=== PATIENT | male | born 1970 | race Caucasian/White ===

== ENCOUNTER 2020-08-18 13:54 | Emergency (ER) | payer OTHER, SELFPAY ==
[2020-08-18 14:10] VITALS: BP 138/67; PULSE 88; RESP 16; TEMP 37.4; O2SAT 97
--- NOTE | 2020-08-18 14:26 | ED.URI ---
HPI - URI/Sore Throat General Chief Complaint: Upper Respiratory Infection Stated Complaint: sore throat Time Seen by Provider: 08/18/20 14:20 Source: patient Mode of arrival: ambulatory Limitations: no limitations History of Present Illness HPI Narrative: Cuauhtemoc Dc is a 49 yo male with DM and HTN who comes to express care with sore throat and fever who has not been to work all week patient appears to have difficulty understanding medical conditions. He has been ill since last Thursday. he is thought that he might be able to sleep it off has been on able to really swallow the last 2 days. Patient was swabbed for both strep and influenza He states he takes his medication for diabetes, HTN Related Data Home Medications Medication Instructions Recorded Confirmed glimepiride 4 mg PO DAILY 08/18/20 08/18/20 lisinopril 10 mg PO DAILY 08/18/20 08/18/20 pioglitazone 30 mg PO DAILY 08/18/20 08/18/20 Allergies Allergy/AdvReac Type Severity Reaction Status Date / Time iohexol Allergy Swelling Verified 08/18/20 14:28 [From contrast - CT, X-RAY] clindamycin AdvReac Intermediate Diarrhea Verified 08/18/20 14:28 Review of Systems Review of Systems: Narrative: CONSTITUTIONAL: has fever, chills, sweats. EYES: Denies visual changes, redness, discharge. ENT: Denies rhinorrhea, congestion, has sore throat, otalgia. Has enlarged lymph nodes particularly on left CARDIOVASCULAR: Denies chest pain, palpitations, edema. RESPIRATORY: Denies dyspnea, wheezing, cough GASTROINTESTINAL: Denies abdominal pain, nausea, vomiting, diarrhea. GENITOURINARY: Denies dysuria, hematuria, abnormal discharge SKIN: Denies rash or itching. NEUROLOGIC: Denies numbness, or focal weakness. PSYCHIATRIC: Denies anxiety or depression. [facility] Past Medical History Medical History (Updated 08/18/20 @ 14:39 by Mayra Corado CNP) Diabetes mellitus Hypertension Family History Family History Other Heart disease Social History Social History (Updated 08/18/20 @ 14:34 by Mayra Corado CNP) Smoking status: Never smoker Alcohol intake: never Comments At time of signature, I agree with nursing past medical, surgical, social and family history. There is no relevant family history pertinent to the presenting complaint. Exam Narrative: Exam Narrative: GENERAL: This is a well-nourished, well-developed patient, in moderate distress. HEAD: normocephalic, atraumatic. EYES: Sclera clear/white. Vision is grossly intact. EARS: External ears normal, auditory canals bilateral erythema and without drainage, TMs normal without perforation. Hearing grossly intact. NOSE: External nose normal without nasal discharge, nares without redness, no rhinorrhea. THROAT: Mucous membranes moist, posterior pharynx erythema, patient does not tolerate probing NECK: Neck supple, tender bilateral submandibular lymph nodes CARDIOVASCULAR: Tachycardic rate and rhythm without murmurs, gallops, or rubs. RESPIRATORY: Clear to auscultation. Breath sounds equal bilaterally. No wheezes, rales, or rhonchi. GASTROINTESTINAL: Abdomen soft, non-tender, SKIN: warm, intact with no suspicious lesions or rash, good texture and turgor. NEURO: awake, alert, and oriented to person, place and time. There were no obvious focal neurologic abnormalities. Steady gait EXTREMITIES: Normal range of motion. BACK: Nontender without deformity Course Course Emergency Course: Patient here for not feeling well Swab positive started on penicillin and steroids as has bilateral submandibular tender lymph nodes, fever, has been sick for 7 days. He seems to have difficulty understanding medical terms and instructions Follow-up with PCP Vital Signs Vital signs: Vital Signs Temperature 99.4 F 08/18/20 14:10 Pulse Rate 88 08/18/20 14:10 Respiratory Rate 16 08/18/20 14:10 Blood Pressure 138/67 08/18/20 14:10 Pulse Oximetry 97
== END 2020-08-18 14:51 | disposition home or self-care (01) ==
PROVIDERS: Emergency Provider Nurse Practitioner; PCP Family Medicine
DX: J02.0 Streptococcal pharyngitis (principal); E11.9 Type 2 diabetes mellitus without complications; I10 Essential (primary) hypertension
CPT/HCPCS: 87804; 87880; 99213; G0463

== ENCOUNTER 2021-01-16 14:47 | Emergency (ER) | payer OTHER, SELFPAY ==
[2021-01-16 15:07] VITALS: BP 130/67; PULSE 82; RESP 16; TEMP 36.7; O2SAT 96
--- NOTE | 2021-01-16 15:17 | ED.URI ---
HPI - URI/Sore Throat General Chief Complaint: Upper Respiratory Infection Stated Complaint: sore throat Source: patient Mode of arrival: ambulatory Limitations: no limitations History of Present Illness HPI Narrative: Patient is a 50-year-old male who presents complaining of sore throat x1 day. Patient reports having frequent history of strep throat was concerned for strep. Patient denies known exposure to Covid. Patient denies taking [id number] medications as well. Patient does report that he has had the air conditioner on and has been sleeping under it nightly. He denies all other complaints at this time. MD elicited complaint: sore throat Related Data Home Medications Medication Instructions Recorded Confirmed glimepiride 4 mg PO DAILY 08/18/20 08/18/20 lisinopril 10 mg PO DAILY 08/18/20 08/18/20 pioglitazone 30 mg PO DAILY 08/18/20 08/18/20 Allergies Allergy/AdvReac Type Severity Reaction Status Date / Time iohexol Allergy Swelling Verified 08/18/20 14:28 [From contrast - CT, X-RAY] clindamycin AdvReac Intermediate Diarrhea Verified 08/18/20 14:28 Review of Systems Review of Systems: Narrative: CONSTITUTIONAL: Denies fever, chills, or sweats. EYES: Denies visual changes, redness, or discharge. ENT: Reports sore throat CARDIOVASCULAR: Denies chest pain, palpitations, or edema. RESPIRATORY: Denies cough or dyspnea. GASTROINTESTINAL: Denies abdominal pain, nausea, vomiting, or diarrhea. GENITOURINARY: Denies dysuria or hematuria. SKIN: Denies rash or itching. MUSCULOSKELETAL: Denies back pain, joint pain, or myalgia. NEUROLOGIC: Denies headache, numbness, dizziness, or weakness. PSYCHIATRIC: Denies anxiety or depression. [facility] Past Medical History Medical History Diabetes mellitus Hypertension Family History Family History Other Heart disease Social History Social History (Updated 01/16/21 @ 15:19 by AMMY Aguiar) Smoking status: Never smoker Alcohol intake: never Substance use: never Gender identity (if verbalized by the patient): Male Comments At the time of signature, I have reviewed and agree with nursing past medical, surgical, social, and family history unless otherwise noted. Please see nursing chart for further information. There is no relevant family history pertinent to the presenting complaint. Exam Narrative: Exam Narrative: GENERAL: Well-appearing, well-nourished, and in no acute distress. HEAD: Normocephalic, atraumatic. EYES: EOMI. No redness or drainage. Conjunctiva are normal. ENT: Throat with mild erythema, no edema or exudate. Nares clear NECK: AROM. Supple. No lymphadenopathy. CHEST: No respiratory distress. HEART: Regular rate and rhythm. EXTREMITIES: Normal range of motion. No edema. SKIN: Warm, dry, no rash. NEURO: No focal deficits. Alert and oriented x3. Gait steady. PSYCH: Normal affect. No signs of depression or anxiety. Course Vital Signs Vital signs: Vital Signs Temperature 36.7 C 01/16/21 15:07 Pulse Rate 82 01/16/21 15:07 Respiratory Rate 16 01/16/21 15:07 Blood Pressure 130/67 01/16/21 15:07 Pulse Oximetry 96 01/16/21 15:07 Temperature 36.7 C 01/16/21 15:07 Pulse Rate 82 01/16/21 15:07 Respiratory Rate 16 01/16/21 15:07 Blood Pressure 130/67 01/16/21 15:07 Pulse Oximetry 96 01/16/21 15:07 Reviewed. Patient has been instructed to follow-up with his PCP regarding his blood pressure. MDM - URI/Sore Throat MDM Narrative Medical decision making narrative: Patient's rapid strep and rapid Covid test are negative at this time. Discussed with patient that sore throat could be caused from sleeping with him with an open mouth as well as seasonal allergies. Patient is stable for discharge to home with outpatient follow-up as needed. Differential Diagnosis Differential diagnosis:
== END 2021-01-16 15:32 | disposition home or self-care (01) ==
PROVIDERS: Emergency Provider Nurse Practitioner; PCP Physician Assistant
DX: J02.9 Acute pharyngitis, unspecified (principal); Z20.822 Contact with and (suspected) exposure to COVID-19; E11.9 Type 2 diabetes mellitus without complications; I10 Essential (primary) hypertension
CPT/HCPCS: 87081; 87426; 87880; 99213; C9803; G0463

== ENCOUNTER 2021-11-19 18:18 | Emergency (ER) | payer OTHER, SELFPAY ==
[2021-11-19 18:28] VITALS: BP 149/87; PULSE 65; RESP 16; TEMP 36.8; O2SAT 98
--- NOTE | 2021-11-19 18:43 | ED.URI ---
HPI - URI/Sore Throat General Chief Complaint: Upper Respiratory Infection Stated Complaint: sinus infection Time Seen by Provider: 11/19/21 18:44 Source: patient, RN notes reviewed and old records reviewed Mode of arrival: ambulatory Limitations: no limitations History of Present Illness HPI Narrative: 50-year-old male presents to the [facility] with complaints of sinus pressure and left ear pressure since yesterday. Took some aspirin which states made everything feel better. No treatment today. Denies chest pain or shortness of breath. No cough. Denies abdominal pain, nausea, vomiting or diarrhea. No fevers MD elicited complaint: nasal congestion and sinus pain Related Data Home Medications Medication Instructions Recorded Confirmed glimepiride 4 mg PO DAILY 08/18/20 08/18/20 lisinopril 10 mg PO DAILY 08/18/20 08/18/20 pioglitazone 30 mg PO DAILY 08/18/20 08/18/20 Allergies Allergy/AdvReac Type Severity Reaction Status Date / Time iohexol Allergy Swelling Verified 08/18/20 14:28 [From contrast - CT, X-RAY] clindamycin AdvReac Intermediate Diarrhea Verified 08/18/20 14:28 Review of Systems Review of Systems: All systems reviewed & are unremarkable except as noted in HPI and below Constitutional: Constitutional: Reports no additional constitutional complaints, Denies chills, Denies fever(s) and Denies headache(s) Eyes: Eyes: Reports no additional eye complaints ENT: Reports as per HPI, Denies vertigo, Denies dizziness, Denies headache(s), Reports nasal congestion and Denies sore throat Comments: Left ear pressure Cardiovascular: Cardiovascular: Reports no additional cardiovascular complaints, Denies chest pain, Denies syncope, Denies rapid heart rate and Denies dyspnea Respiratory: Respiratory: Reports no additional respiratory complaints, Denies cough, Denies dyspnea and Denies wheezing Gastrointestinal: Gastrointestinal: Reports no additional gastrointestinal complaints, Denies abdominal pain, Denies diarrhea, Denies nausea and Denies vomiting Musculoskeletal: Musculoskeletal: Reports no additional musculoskeletal complaints and Denies numbness Integumentary/Breasts: Skin/Breast: Reports system reviewed and no additional complaints, except as docu Neurologic: Reports system reviewed and no additional complaints, except as documented, Denies vertigo, Denies dizziness, Denies syncope, Denies headache(s), Denies focal weakness and Denies numbness Psychiatric: Psychiatric: Reports no additional psychiatric complaints Allergic/Immunologic: Allergic/Immunologic: Reports no additional allergic/immunologic complaints and Denies wheezing PMFSH Past Medical History Medical History Diabetes mellitus Hypertension Family History Family History Other Heart disease Social History Social History Smoking status: Never smoker Alcohol intake: never Substance use: never Gender identity (if verbalized by the patient): Male Comments At the time of my signature, I reviewed and agree with the nursing past medical, surgical, social, and family history. There is no relevant family history pertinent to the patient complaint. Exam Const: General: cooperative, healthy appearing, no acute distress, well developed and alert Nutritional Appearance: well nourished and obese morbidly obese Orientation/consciousness: patient oriented x3 Limitations: no limitations HENMT: Head: normal to inspection Ears: external ears normal, EAC's normal and TM abnormal with fluid behind the TM on the left; not erythematous and with no loss of landmarks General nose exam: Normal external nose present, Abnormal mucous membranes and turbinates present boggy; not erythematous and Nasal discharge present clear Face and sinus: normal facial exam and face symmetric Mouth: Yes lip ting
== END 2021-11-19 19:03 | disposition home or self-care (01) ==
PROVIDERS: Emergency Provider Nurse Practitioner; PCP Physician Assistant
DX: J32.9 Chronic sinusitis, unspecified (principal); H65.02 Acute serous otitis media, left ear; E11.9 Type 2 diabetes mellitus without complications; I10 Essential (primary) hypertension
CPT/HCPCS: 87081; 87880; 99213; G0463

== ENCOUNTER 2022-03-04 17:27 | Emergency (ER) | payer OTHER, SELFPAY ==
[2022-03-04 17:39] VITALS: BP 138/48; PULSE 79; RESP 16; TEMP 36.6; O2SAT 98
--- NOTE | 2022-03-04 17:41 | ED.EYEPROB ---
HPI - Eye Problem General Chief complaint: Eye Problems Stated complaint: Left swollen eye Time Seen by Provider: 03/04/22 17:39 Source: patient and RN notes reviewed Mode of arrival: ambulatory Limitations: no limitations History of Present Illness HPI Narrative: 51-year-old male presents to the [facility] for left upper eyelid redness and swelling that started 2 days ago. Patient has a skin tag to the eyelid as well, states that its been there for years. No blurry vision or change in vision. Patient states that his eyes were crusted. MD chief complaint: eye pain and eye redness Related Data Home Medications Medication Instructions Recorded Confirmed glimepiride 4 mg PO DAILY 08/18/20 03/04/22 lisinopril 10 mg PO DAILY 08/18/20 03/04/22 pioglitazone 30 mg PO DAILY 08/18/20 03/04/22 Allergies Allergy/AdvReac Type Severity Reaction Status Date / Time iohexol Allergy Swelling Verified 03/04/22 18:01 [From contrast - CT, X-RAY] clindamycin AdvReac Intermediate Diarrhea Verified 03/04/22 18:01 Review of Systems Review of Systems: All systems reviewed & are unremarkable except as noted in HPI and below Constitutional: Constitutional: Reports no additional constitutional complaints, Denies chills and Denies fever(s) Eyes: Eyes: Reports as per HPI, Denies blurry vision, Denies exophthalmos and Denies change in vision ENT: Reports system reviewed and no additional complaints, except as documented Cardiovascular: Cardiovascular: Reports no additional cardiovascular complaints Respiratory: Respiratory: Reports no additional respiratory complaints Gastrointestinal: Gastrointestinal: Reports no additional gastrointestinal complaints Musculoskeletal: Musculoskeletal: Reports no additional musculoskeletal complaints Integumentary/Breasts: Skin/Breast: Reports system reviewed and no additional complaints, except as docu Neurologic: Reports system reviewed and no additional complaints, except as documented Psychiatric: Psychiatric: Reports no additional psychiatric complaints Allergic/Immunologic: Allergic/Immunologic: Reports no additional allergic/immunologic complaints PMFSH Past Medical History Medical History Diabetes mellitus Hypertension Family History Family History Other Heart disease Social History Social History Smoking status: Never smoker Alcohol intake: never Substance use: never Gender identity (if verbalized by the patient): Male Comments At the time of my signature, I reviewed and agree with the nursing past medical, surgical, social, and family history. There is no relevant family history pertinent to the patient complaint. Exam Const: General: healthy appearing, no acute distress and alert Nutritional Appearance: well nourished Orientation/consciousness: patient oriented x3 Limitations: no limitations HENMT: Head: normal to inspection Ears: external ears normal Eyes: Conjunctivae: conjunctivae normal Pupils: Equal, round and reactive pupils present Other: Left upper eyelid swelling, redness without increased warmth Neck: Neck: normal visual inspection, no lymphadenopathy and no meningeal signs Chest: Chest palpation & inspection: normal inspection of the chest Resp: Effort & Inspection: normal respiratory effort and no use of accessory muscles Auscultation: clear to auscultation bilaterally, no crackles, no rales, no rhonchi and no wheezes Cardio: Rate: regular rate Rhythm: regular rhythm GI: GI Palp: Yes Soft to palpation and No Tenderness to palpation present (GI) Back/Spine/Pelvis: Back: no CVA tenderness Skin: General skin exam: normal color Rashes: no rashes Wounds: no wounds Neuro: General: patient oriented x3, moves all extremities, no meningeal signs and no focal motor deficits Cranial
== END 2022-03-04 17:50 | disposition home or self-care (01) ==
PROVIDERS: Emergency Provider Nurse Practitioner; PCP Physician Assistant
DX: H01.004 Unspecified blepharitis left upper eyelid (principal); E11.9 Type 2 diabetes mellitus without complications; I10 Essential (primary) hypertension
CPT/HCPCS: 99213; G0463

== ENCOUNTER 2022-03-24 18:31 | Emergency (ER) | payer OTHER, SELFPAY ==
[2022-03-24 18:40] VITALS: BP 155/78; PULSE 78; RESP 16; TEMP 36.6; O2SAT 99
--- NOTE | 2022-03-24 18:49 | ED.GENADULT ---
HPI - General Adult General Chief complaint: Ear Stated complaint: Ear Pain,Eye Pain Time Seen by Provider: 03/24/22 18:49 Source: patient, RN notes reviewed and old records reviewed Mode of arrival: ambulatory Limitations: no limitations History of Present Illness HPI narrative: 51-year-old male presents to the [facility] with complaints of left eye pain and left outer ear pain with swelling pre and post auricular. Patient states the eye has gotten better since last time he was seen. Still has a very large stye to the outer upper eyelid. No trauma. did not follow up with ophthalmology/optometry. No change in vision or blurry vision. No fevers Related Data Home Medications Medication Instructions Recorded Confirmed glimepiride 4 mg PO DAILY 08/18/20 03/04/22 lisinopril 10 mg PO DAILY 08/18/20 03/04/22 pioglitazone 30 mg PO DAILY 08/18/20 03/04/22 Allergies Allergy/AdvReac Type Severity Reaction Status Date / Time iohexol Allergy Swelling Verified 03/04/22 18:01 [From contrast - CT, X-RAY] clindamycin AdvReac Intermediate Diarrhea Verified 03/04/22 18:01 Review of Systems Review of Systems: All systems reviewed & are unremarkable except as noted in HPI and below Constitutional: Constitutional: Reports no additional constitutional complaints, Denies chills and Denies fever(s) Eyes: Eyes: Reports no additional eye complaints ENT: Reports as per HPI Comments: Outer ear pain, left eye upper lid stye Cardiovascular: Cardiovascular: Reports no additional cardiovascular complaints Respiratory: Respiratory: Reports no additional respiratory complaints and Denies cough Gastrointestinal: Gastrointestinal: Reports no additional gastrointestinal complaints Musculoskeletal: Musculoskeletal: Reports no additional musculoskeletal complaints Integumentary/Breasts: Skin/Breast: Reports system reviewed and no additional complaints, except as docu Neurologic: Reports system reviewed and no additional complaints, except as documented Psychiatric: Psychiatric: Reports no additional psychiatric complaints Allergic/Immunologic: Allergic/Immunologic: Reports no additional allergic/immunologic complaints PMFSH Past Medical History Medical History Diabetes mellitus Hypertension Family History Family History Other Heart disease Social History Social History (Reviewed 03/25/22 @ 08:15 by BRIAN Davis Smoking status: Never smoker Alcohol intake: never Substance use: never Gender identity (if verbalized by the patient): Male Comments At the time of my signature, I reviewed and agree with the nursing past medical, surgical, social, and family history. There is no relevant family history pertinent to the patient complaint. Exam Const: General: healthy appearing, no acute distress and alert Nutritional Appearance: well nourished and obese Orientation/consciousness: patient oriented x3 Limitations: no limitations HENMT: Head: normal to inspection Ears: external ears normal, TM's normal bilaterally, EAC's normal and periauricular adenopathy on the left (Pre and post) General nose exam: Normal external nose present and Normal nares present Face and sinus: normal facial exam and sinuses nontender Mouth: Yes Normal oral and palatal mucosa present and Yes moist mucous membranes Throat: posterior oropharynx normal, tonsils normal and uvula midline Eyes: Visual Reinoso: normal visual reinoso by confrontation Alignment and Position: alignment normal Eyelids: eyelid abnormality left upper eyelid inflamed cyst external lid; without erythema, without lacerations, no crusting or scaling of lid margins, without swelling and nontender Pupils: Equal, round and reactive pupils present EOM: EOMs intact bilaterally Eyes/upper lids images: 1. stye, surrounding erythema or swelling Neck: Neck:
== END 2022-03-24 19:12 | disposition home or self-care (01) ==
PROVIDERS: Emergency Provider Nurse Practitioner; PCP Physician Assistant
DX: H00.014 Hordeolum externum left upper eyelid (principal); R59.1 Generalized enlarged lymph nodes; E11.9 Type 2 diabetes mellitus without complications; I10 Essential (primary) hypertension
CPT/HCPCS: 99213; G0463

== ENCOUNTER 2022-05-10 12:59 | Emergency (ER) | payer OTHER, SELFPAY ==
[2022-05-10 13:09] VITALS: BP 131/75; PULSE 83; RESP 16; TEMP 36.8; O2SAT 98
[2022-05-10 13:11] VITALS: BP 131/75; PULSE 83; RESP 16; TEMP 36.8; O2SAT 98
--- NOTE | 2022-05-10 13:19 | ED.NAVMDI ---
HPI - Nausea/Vomiting/Diarrhea General Chief complaint: Nausea/Vomiting/Diarrhea Stated complaint: Nausea/diarrhea Time Seen by Provider: 05/10/22 13:16 Source: patient Mode of arrival: ambulatory Limitations: no limitations History of Present Illness HPI Narrative: Mr. Dc is a 51-year-old male patient presenting to the clinic today with complaints of nausea and diarrhea that started yesterday. He reports that he has not had any diarrhea stools today but is still nauseous. He is being seen today because he needs a work note. He denies any fever chills or abdominal pain. States that he had 1 big episode of diarrhea yesterday but nothing since. He is a diabetic. Related Data Home Medications Medication Instructions Recorded Confirmed glimepiride 4 mg tablet 4 mg PO DAILY 08/18/20 05/10/22 lisinopril 10 mg tablet 10 mg PO DAILY 08/18/20 05/10/22 pioglitazone 30 mg tablet 30 mg PO DAILY 08/18/20 05/10/22 Allergies Allergy/AdvReac Type Severity Reaction Status Date / Time iohexol Allergy Swelling Verified 05/10/22 13:10 [From contrast - CT, X-RAY] clindamycin AdvReac Intermediate Diarrhea Verified 05/10/22 13:10 Review of Systems Review of Systems: Pertinent positives per HPI. Patient denies any fever, chills, rash, headache, visual changes, dizziness, cough, runny nose, sore throat, shortness of breath, chest pain, palpitations, nausea, vomiting, diarrhea, constipation, abdominal pain, or any urinary issues. [facility] Past Medical History Medical History Diabetes mellitus Hypertension Family History Family History Other Heart disease Social History Social History Smoking status: Never smoker Alcohol intake: never Substance use: never Gender identity (if verbalized by the patient): Male Comments At the time of my signature, I reviewed and agree with the nursing past medical, surgical, social, and family history. There is no relevant family history pertinent to the patient complaint. Exam Narrative: General: Well-developed, morbidly obese, in no apparent distress. Head: Normocephalic, atraumatic. Cardio: Regular rate and rhythm, s1 and s2 normal, no murmur appreciated. Resp: Clear to auscultation bilaterally, no rhonchi, rales, wheezing or rubs. Abdomen: Soft, pliable, bowel sounds present in all quadrants, non-tender to palpation, no organomegly, no CVAT tenderness. Course Course Emergency Course: Portions of this record may have been created with voice recognition software. Level of Care: Express Care Visit Vital Signs Vital signs: Vital Signs Temperature 36.8 C 05/10/22 13:09 Pulse Rate 83 05/10/22 13:09 Respiratory Rate 16 05/10/22 13:09 Blood Pressure 131/75 05/10/22 13:09 Pulse Oximetry 98 05/10/22 13:09 Oxygen Delivery Room Air 05/10/22 13:09 Temperature 36.8 C 05/10/22 13:11 Pulse Rate 83 05/10/22 13:11 Respiratory Rate 16 05/10/22 13:11 Blood Pressure 131/75 05/10/22 13:11 Pulse Oximetry 98 05/10/22 13:11 Oxygen Delivery Room Air 05/10/22 13:11 Vital signs reviewed MDM - Nausea/Vomiting/Diarrhea MDM Narrative Medical decision making narrative: At the time of visit patient is resting comfortably on the exam table. I suspect the patient had gastroenteritis. I will give him a prescription for some Zofran for the nausea and give him a return to work note. Supportive measures were discussed with the patient he voiced understanding of discharge instructions and agrees to treatment plan. Discharge Plan Discharge Clinical Impression: Gastroenteritis Patient Disposition: Home, Self-Care Condition: Stable Instructions: Antibiotic Form, Gastroenteritis (ED) Additional Instructions: Take prescription medications only as prescribed
== END 2022-05-10 13:27 | disposition home or self-care (01) ==
PROVIDERS: Emergency Provider Nurse Practitioner Family
DX: K52.9 Noninfective gastroenteritis and colitis, unspecified (principal); E11.9 Type 2 diabetes mellitus without complications; I10 Essential (primary) hypertension
CPT/HCPCS: 99213; G0463

== ENCOUNTER 2022-06-02 15:39 | Emergency (ER) | payer OTHER, SELFPAY ==
[2022-06-02 15:47] VITALS: BP 140/63; PULSE 82; RESP 20; TEMP 36.8; O2SAT 97
--- NOTE | 2022-06-02 16:14 | ED.BACK ---
HPI - Back Pain/Injury General Chief Complaint: Back Pain/Injury Stated Complaint: Back Pain Time Seen by Provider: 06/02/22 16:14 Source: patient, family, RN notes reviewed and old records reviewed Mode of arrival: ambulatory Limitations: no limitations History of Present Illness HPI Narrative: 51-year-old male presents to the [facility] with complaints of back pain right lower back pain for a few weeks. Its been getting gradually worse. Denies abdominal pain. Denies any loss or retention of bowel or bladder. Denies numbness or tingling in extremity. No saddle anesthesia Denies any injury. No redness, swelling. No rashes MD elicited complaint: back pain Related Data Home Medications Medication Instructions Recorded Confirmed glimepiride 4 mg tablet 4 mg PO DAILY 08/18/20 06/02/22 lisinopril 10 mg tablet 10 mg PO DAILY 08/18/20 06/02/22 pioglitazone 30 mg tablet 30 mg PO DAILY 08/18/20 06/02/22 Allergies Allergy/AdvReac Type Severity Reaction Status Date / Time iohexol Allergy Swelling Verified 06/02/22 16:10 [From contrast - CT, X-RAY] clindamycin AdvReac Intermediate Diarrhea Verified 06/02/22 16:10 Review of Systems Review of Systems: All systems reviewed & are unremarkable except as noted in HPI and below Constitutional: Constitutional: Reports no additional constitutional complaints and Denies weakness Eyes: Eyes: Reports no additional eye complaints ENT: Reports system reviewed and no additional complaints, except as documented Cardiovascular: Cardiovascular: Reports no additional cardiovascular complaints and Denies chest pain Respiratory: Respiratory: Reports no additional respiratory complaints Gastrointestinal: Gastrointestinal: Reports no additional gastrointestinal complaints and Denies abdominal pain Musculoskeletal: Musculoskeletal: Reports as per HPI, Reports back pain and Denies numbness Integumentary/Breasts: Skin/Breast: Reports system reviewed and no additional complaints, except as docu Neurologic: Reports system reviewed and no additional complaints, except as documented, Denies focal weakness, Denies numbness and Denies weakness Psychiatric: Psychiatric: Reports no additional psychiatric complaints Allergic/Immunologic: Allergic/Immunologic: Reports no additional allergic/immunologic complaints PMFSH Past Medical History Medical History Diabetes mellitus Hypertension Family History Family History Other Heart disease Social History Social History Smoking status: Never smoker Alcohol intake: never Substance use: never Gender identity (if verbalized by the patient): Male Comments At the time of my signature, I reviewed and agree with the nursing past medical, surgical, social, and family history. There is no relevant family history pertinent to the patient complaint. Exam Const: General: healthy appearing, no acute distress and alert Nutritional Appearance: well nourished and obese Orientation/consciousness: patient oriented x3 Limitations: no limitations HENMT: Head: normal to inspection Eyes: Pupils: Equal, round and reactive pupils present Neck: Neck: normal visual inspection, no lymphadenopathy and no meningeal signs Chest: Chest palpation & inspection: normal inspection of the chest Resp: Effort & Inspection: normal respiratory effort and no use of accessory muscles Auscultation: clear to auscultation bilaterally, no crackles, no rales, no rhonchi and no wheezes Cardio: Rate: regular rate Rhythm: regular rhythm GI: GI Palp: Yes Soft to palpation, No Tenderness to palpation present (GI) and No Guarding due to palpation present (GI) : General: Yes no CVA tenderness Back/Spine/Pelvis: Back: no CVA tenderness Cervical Spine: normal cervical lordosis Thoracic/Lumbar Spine: th
== END 2022-06-02 16:38 | disposition home or self-care (01) ==
PROVIDERS: Emergency Provider Nurse Practitioner; PCP Physician Assistant
DX: S39.012A Strain of muscle, fascia and tendon of lower back, initial encounter (principal); X58.XXXA Exposure to other specified factors, initial encounter; E11.9 Type 2 diabetes mellitus without complications; I10 Essential (primary) hypertension
CPT/HCPCS: 99213; G0463

== ENCOUNTER 2022-08-20 18:01 | Emergency (ER) | payer OTHER, SELFPAY ==
[2022-08-20 18:15] VITALS: BP 113/67; PULSE 74; RESP 16; TEMP 37.1; O2SAT 99
--- NOTE | 2022-08-20 18:34 | ED.URI ---
HPI - URI/Sore Throat General Chief Complaint: Upper Respiratory Infection Stated Complaint: Headache,Sinus,Nausea Time Seen by Provider: 08/20/22 18:34 Source: patient and RN notes reviewed Mode of arrival: ambulatory Limitations: no limitations History of Present Illness HPI Narrative: 51-year-old male presented for complaint of sinus headache for 5 days. He endorses occasional nausea. He currently denies cough, shortness of breath, wheezing, fevers or chills. He has not taken anything for his pain. Taking keflex for toe infection. Hx DM, HTN MD elicited complaint: cough Related Data Home Medications Medication Instructions Recorded Confirmed glimepiride 4 mg tablet 4 mg PO DAILY 08/18/20 06/02/22 lisinopril 10 mg tablet 10 mg PO DAILY 08/18/20 06/02/22 pioglitazone 30 mg tablet 30 mg PO DAILY 08/18/20 06/02/22 cephalexin 500 mg capsule mg 08/20/22 Allergies Allergy/AdvReac Type Severity Reaction Status Date / Time iohexol Allergy Swelling Verified 08/20/22 18:07 [From contrast - CT, X-RAY] clindamycin AdvReac Intermediate Diarrhea Verified 08/20/22 18:07 Review of Systems Review of Systems: CONSTITUTIONAL: Denies malaise, chills, sweats, fever EYES: Denies visual changes, redness, or discharge ENT: Denies rhinorrhea, congestion, sinus pain, otalgia, sore throat CARDIOVASCULAR: Denies chest pain, palpitations, edema RESPIRATORY: Reports cough, post nasal drainage. Denies dyspnea GASTROINTESTINAL: Denies abdominal pain, vomiting, diarrhea SKIN: Denies rash or itching NEUROLOGIC: Reports headache PMFSH Past Medical History Medical History Diabetes mellitus Hypertension Family History Family History Other Heart disease Social History Social History Smoking status: Never smoker Alcohol intake: never Substance use: never Gender identity (if verbalized by the patient): Male Exam Narrative: GENERAL: well-appearing HEAD: Normocephalic EYES: PERRLA, conjunctivae clear ENT: Mucous membranes moist. TMs pearly richter with dull light reflex bilaterally; no tragal tenderness. Oropharynx erythematous without lesions or exudate, no drooling, no hoarseness, no trismus, uvula midline. CHEST: Clear to auscultation, breath sounds equal. HEART: Regular rate and rhythm. No murmur heard. SKIN: Warm, dry, no rash. NEURO: Alert and oriented x3. Course Course Emergency Course: Patient is aware of diagnosis, understands and agrees to treatment plan. Anticipatory guidance given. Patient agrees to follow-up as directed and is aware of reasons to seek care at the emergency department. Portions of this record may have been created with voice recognition software Level of Care: Express Care Visit Vital Signs Vital signs: Vital Signs Temperature 98.8 F 08/20/22 18:15 Pulse Rate 74 08/20/22 18:15 Respiratory Rate 16 08/20/22 18:15 Blood Pressure 113/67 08/20/22 18:15 Pulse Oximetry 99 08/20/22 18:15 Oxygen Delivery Room Air 08/20/22 18:15 Temperature 98.8 F 08/20/22 18:15 Pulse Rate 74 08/20/22 18:15 Respiratory Rate 16 08/20/22 18:15 Blood Pressure 113/67 08/20/22 18:15 Pulse Oximetry 99 08/20/22 18:15 Oxygen Delivery Room Air 08/20/22 18:15 reviewed MDM - URI/Sore Throat MDM Narrative Medical decision making narrative: Advised supportive measures and signs/symptoms to go to the ER. Reports BS well controlled. Pt is appropriate for outpt treatment and f/u. Differential Diagnosis Differential diagnosis: Likely upper respiratory infection, sinusitis, viral infection and other (headache, nausea, gastroenteritis, dehydration) Discharge Plan Discharge Clinical Impression: Frontal headache Patient Disposition: Home, Self-Care Condition: Stable Instructions: Allergic Rhi
== END 2022-08-20 18:50 | disposition home or self-care (01) ==
PROVIDERS: Emergency Provider Nurse Practitioner Family; PCP Physician Assistant
DX: R51.9 Headache, unspecified (principal); E11.9 Type 2 diabetes mellitus without complications; I10 Essential (primary) hypertension
CPT/HCPCS: 99213; G0463

== ENCOUNTER 2022-08-24 18:30 | Emergency (ER) | payer OTHER, SELFPAY ==
--- NOTE | 2022-08-24 18:37 | ED.URI ---
HPI - URI/Sore Throat General Chief Complaint: Upper Respiratory Infection Stated Complaint: Sinus Time Seen by Provider: 08/24/22 19:23 Source: patient and RN notes reviewed Mode of arrival: ambulatory Limitations: no limitations History of Present Illness HPI Narrative: 51-year-old male presents with concern for sinus pressure, pain, headache. Reports history of strep throat with similar symptoms. He reports he had been taking cephalexin for a toe infection which has improved, however it has not helped his sinus problems. He reports exposure to strep throat. MD elicited complaint: cough and sore throat Related Data Home Medications Medication Instructions Recorded Confirmed glimepiride 4 mg tablet 4 mg PO DAILY 08/18/20 08/24/22 lisinopril 10 mg tablet 10 mg PO DAILY 08/18/20 08/24/22 pioglitazone 30 mg tablet 30 mg PO DAILY 08/18/20 08/24/22 Allergies Allergy/AdvReac Type Severity Reaction Status Date / Time iohexol Allergy Swelling Verified 08/24/22 18:56 [From contrast - CT, X-RAY] clindamycin AdvReac Intermediate Diarrhea Verified 08/24/22 18:56 Review of Systems Review of Systems: CONSTITUTIONAL: Reports malaise, chills, sweats, or fever. EYES: Denies visual changes, redness, or discharge. ENT: Reports rhinorrhea, congestion, sinus pain. Denies otalgia and sore throat. CARDIOVASCULAR: Denies chest pain, palpitations, or edema. RESPIRATORY: Denies cough. Denies dyspnea. GASTROINTESTINAL: Denies abdominal pain, nausea, vomiting, diarrhea SKIN: Denies rash or itching. MUSCULOSKELETAL: Denies myalgia. NEUROLOGIC: Reports headache. All systems reviewed & are unremarkable except as noted in HPI and below PMFSH Past Medical History Medical History Diabetes mellitus Hypertension Family History Family History Other Heart disease Social History Social History Smoking status: Never smoker Alcohol intake: never Substance use: never Gender identity (if verbalized by the patient): Male Comments At time of signature, agree with nursing past medical, surgical, social and family history. There is no relevant family history pertinent to the presenting complaint Exam Narrative: GENERAL: Well-appearing, well-nourished, and in no acute distress. HEAD: Normocephalic EYES: PERRLA, conjunctivae clear ENT: Nares clear, turbinates edematous and erythematous, clear discharge. Mucous membranes moist. TM pearly richter with dull light reflex bilaterally; no tragal tenderness. Oropharynx not erythematous without lesions. Tonsils not enlarged and without exudate, no drooling, no hoarseness, no trismus, uvula midline. NECK: Supple. No lymphadenopathy CHEST: Clear to auscultation, breath sounds equal. No wheezing, rhonchi, rales, or stridor. No respiratory distress, speaks in full sentences. HEART: Regular rate and rhythm. No murmur heard. SKIN: Warm, dry, no rash. NEURO: Alert and oriented x3. PSYCH: Normal mood and affect Course Course Emergency Course: Patient is aware of diagnosis, understands and agrees to treatment plan. Anticipatory guidance given. Patient agrees to follow-up as directed and is aware of reasons to seek care at the emergency department. Portions of this record may have been created with voice recognition software Level of Care: Express Care Visit Vital Signs Vital signs: Reviewed. MDM - URI/Sore Throat MDM Narrative Medical decision making narrative: Differential diagnosis considered: Angel virus, strep pharyngitis, allergic rhinitis, upper respiratory tract infection, sinusitis, rhinosinusitis, nasopharyngitis. viral pharyngitis, otitis media, otitis externa, pneumonia, bronchitis, viral cough syndrome, viral syndrome, and influenza. Exam findings show no acute concerns or changes; patient is non-toxic appearing a
[2022-08-24 18:39] VITALS: BP 139/69; PULSE 79; RESP 20; TEMP 36.9; O2SAT 99
== END 2022-08-24 19:31 | disposition home or self-care (01) ==
PROVIDERS: Emergency Provider Nurse Practitioner; PCP Physician Assistant
DX: J02.0 Streptococcal pharyngitis (principal); E11.9 Type 2 diabetes mellitus without complications; I10 Essential (primary) hypertension
CPT/HCPCS: 87880; 99213; G0463

== ENCOUNTER 2022-09-07 17:46 | Emergency (ER) | payer OTHER, SELFPAY ==
[2022-09-07 17:54] VITALS: BP 132/50; PULSE 79; RESP 20; TEMP 36.7; O2SAT 97
[2022-09-07 17:57] VITALS: BP 132/50; PULSE 79; RESP 20; TEMP 36.7; O2SAT 97
--- NOTE | 2022-09-07 18:06 | ED.EXTPRO ---
HPI - Extremity Problem General Chief complaint: Extremity Problem,Nontraumatic Stated complaint: Left Big Toe Pain Time Seen by Provider: 09/07/22 18:05 Source: patient Mode of arrival: ambulatory Limitations: no limitations History of Present Illness HPI Narrative: Mr. Dc is a 51-year-old male patient presenting to clinic today with complaints of left great toe infection. He reports he has seen his PCP for this and she gave him a prescription for Keflex for an infected ingrown toenail. He reports that it does not seem to be improving and is concerned that he may need a stronger antibiotic. Related Data Home Medications Medication Instructions Recorded Confirmed glimepiride 4 mg tablet 4 mg PO DAILY 08/18/20 09/07/22 lisinopril 10 mg tablet 10 mg PO DAILY 08/18/20 09/07/22 pioglitazone 30 mg tablet 30 mg PO DAILY 08/18/20 09/07/22 Allergies Allergy/AdvReac Type Severity Reaction Status Date / Time iohexol Allergy Swelling Verified 09/07/22 17:55 [From contrast - CT, X-RAY] clindamycin AdvReac Intermediate Diarrhea Verified 09/07/22 17:55 Review of Systems Review of Systems: Pertinent positives per HPI. Patient denies any fever, chills, rash, headache, visual changes, dizziness, cough, runny nose, sore throat, shortness of breath, chest pain, palpitations, nausea, vomiting, diarrhea, constipation, abdominal pain, or any urinary issues. PMFSH Past Medical History Medical History Diabetes mellitus Hypertension Family History Family History Other Heart disease Social History Social History Smoking status: Never smoker Alcohol intake: never Substance use: never Gender identity (if verbalized by the patient): Male Comments At the time of my signature, I reviewed and agree with the nursing past medical, surgical, social, and family history. There is no relevant family history pertinent to the patient complaint. Exam Narrative: General: Well-developed, well nourished, in no apparent distress Head: Normocephalic, atraumatic. Cardio: Regular rate and rhythm, s1 and s2 normal, no murmur appreciated. Resp: Clear to auscultation bilaterally, no rhonchi, rales, wheezing or rubs. Musculoskeletal: No deformity, tender to palpation over the medial toenail with redness and swelling noted, no discharge currently, grossly normal range of motion, muscle strength strong and equal, peripheral pulse strong, no cyanosis, normal gait and station Course Course Emergency Course: Portions of this record may have been created with voice recognition software. Level of Care: Express Care Visit Vital Signs Vital signs: Vital Signs Temperature 36.7 C 09/07/22 17:54 Pulse Rate 79 09/07/22 17:54 Respiratory Rate 20 09/07/22 17:54 Blood Pressure 132/50 L 09/07/22 17:54 Pulse Oximetry 97 09/07/22 17:54 Oxygen Delivery Room Air 09/07/22 17:54 Temperature 36.7 C 09/07/22 17:57 Pulse Rate 79 09/07/22 17:57 Respiratory Rate 20 09/07/22 17:57 Blood Pressure 132/50 L 09/07/22 17:57 Pulse Oximetry 97 09/07/22 17:57 Oxygen Delivery Room Air 09/07/22 17:57 Vital signs reviewed MDM - Extremity (Nontraumatic) MDM Narrative Medical decision making narrative: at the time of it the patient is resting comfortably on the exam chair. he has an infected ingrown toenail to the left great toe. Offered ingrown toenail removal procedure and patient declined in the office today. Supportive measures were discussed with the patient he voiced understanding of discharge instructions and agrees to treatment plan. He is going to continue his current antibiotic Differential Diagnosis Differential diagnosis: Likely other ( infected ingrown toenail) Discharge Plan Discharge Clinical Impression: In
== END 2022-09-07 18:11 | disposition home or self-care (01) ==
PROVIDERS: Emergency Provider Nurse Practitioner Family; PCP Physician Assistant
DX: L60.0 Ingrowing nail (principal); E11.9 Type 2 diabetes mellitus without complications; I10 Essential (primary) hypertension
CPT/HCPCS: 99212; G0463

== ENCOUNTER 2022-11-24 13:34 | Emergency (ER) | payer OTHER, SELFPAY ==
--- NOTE | 2022-11-24 13:43 | ED.URI ---
HPI - URI/Sore Throat General Chief Complaint: Upper Respiratory Infection Stated Complaint: Cough/Sore Throat Time Seen by Provider: 11/24/22 13:44 Source: patient, RN notes reviewed and old records reviewed Mode of arrival: ambulatory Limitations: no limitations History of Present Illness HPI Narrative: 51-year-old male presents to the [facility] with complaints of cough and sore throat since Thursday, 3 days. Right eye redness that started last night, crusted over this morning Patient reports a history of strep. No treatment prior to arrival Related Data Home Medications Medication Instructions Recorded Confirmed glimepiride 4 mg tablet 4 mg PO DAILY 08/18/20 11/24/22 lisinopril 10 mg tablet 10 mg PO DAILY 08/18/20 11/24/22 pioglitazone 30 mg tablet 30 mg PO DAILY 08/18/20 11/24/22 Allergies Allergy/AdvReac Type Severity Reaction Status Date / Time iohexol Allergy Swelling Verified 11/24/22 13:37 [From contrast - CT, X-RAY] clindamycin AdvReac Intermediate Diarrhea Verified 11/24/22 13:37 Review of Systems Review of Systems: All systems reviewed & are unremarkable except as noted in HPI and below Constitutional: Constitutional: Reports no additional constitutional complaints Eyes: Eyes: Reports as per HPI ENT: Reports sore throat Cardiovascular: Cardiovascular: Reports no additional cardiovascular complaints, Denies chest pain and Denies dyspnea Respiratory: Respiratory: Reports no additional respiratory complaints, Denies chest congestion, Denies cough and Denies dyspnea Gastrointestinal: Gastrointestinal: Reports no additional gastrointestinal complaints, Denies abdominal pain, Denies nausea and Denies vomiting Musculoskeletal: Musculoskeletal: Reports no additional musculoskeletal complaints Integumentary/Breasts: Skin/Breast: Reports system reviewed and no additional complaints, except as docu Neurologic: Reports system reviewed and no additional complaints, except as documented Psychiatric: Psychiatric: Reports no additional psychiatric complaints Allergic/Immunologic: Allergic/Immunologic: Reports no additional allergic/immunologic complaints PMFSH Past Medical History Medical History Diabetes mellitus Hypertension Family History Family History Other Heart disease Social History Social History Smoking status: Never smoker Alcohol intake: never Substance use: never Gender identity (if verbalized by the patient): Male Comments At the time of my signature, I reviewed and agree with the nursing past medical, surgical, social, and family history. There is no relevant family history pertinent to the patient complaint. Exam Const: General: cooperative, healthy appearing, comfortable, no acute distress, well developed, alert and well nourished Nutritional Appearance: well nourished and obese Orientation/consciousness: patient oriented x3 Limitations: no limitations HENMT: Head: normal to inspection Ears: hearing grossly normal bilaterally and external ears normal Face/Nose/Sinus: Normal external nose present, Normal nares present, Normal nasal mucous membranes and turbinates present and normal facial exam Face and sinus: normal facial exam Mouth: Yes Normal oral and palatal mucosa present, Yes lip normal and Yes moist mucous membranes Throat: posterior oropharynx normal and uvula midline Eyes: General: appearance normal, both eyes and all related structures Alignment and Position: alignment normal Periorbital: periorbital findings normal Conjunctivae: conjunctivae normal Pupils: Equal, round and reactive pupils present EOM: EOMs intact bilaterally Neck: Neck: normal visual inspection, full ROM, no lymphadenopathy and no meningeal signs Chest: Chest palpation & inspection: normal inspection of the chest Resp:
[2022-11-24 13:44] VITALS: BP 139/90; PULSE 84; RESP 20; TEMP 36.6; O2SAT 97
== END 2022-11-24 14:07 | disposition home or self-care (01) ==
PROVIDERS: Emergency Provider Nurse Practitioner; PCP Physician Assistant
DX: J02.0 Streptococcal pharyngitis (principal); H10.31 Unspecified acute conjunctivitis, right eye; E11.9 Type 2 diabetes mellitus without complications; I10 Essential (primary) hypertension
CPT/HCPCS: 87880; 99213; G0463

== ENCOUNTER 2022-12-13 14:17 | Emergency (ER) | payer OTHER, SELFPAY ==
[2022-12-13 14:33] VITALS: BP 116/62; PULSE 82; RESP 20; TEMP 36.5; O2SAT 98
--- NOTE | 2022-12-13 14:38 | ED.URI ---
HPI - URI/Sore Throat General Chief Complaint: Upper Respiratory Infection Stated Complaint: Sore Throat Time Seen by Provider: 12/13/22 14:38 History of Present Illness HPI Narrative: 51-year-old male with hx DM presenting for complaint of left-sided sore throat radiating into the left ear. States he woke this morning with these symptoms. States these symptoms feel similar to the last strep infection. Treated for strep on 11/24/2022. Reports he completed all of his antibiotics as directed and replaced toothbrush. He denies sick contacts. Not taking anything for symptoms. Denies any additional symptoms such as sinus congestion, cough, shortness of breath, wheezing, nausea, vomiting, diarrhea, fevers or chills. Related Data Home Medications Medication Instructions Recorded Confirmed glimepiride 4 mg tablet 4 mg PO DAILY 08/18/20 12/13/22 lisinopril 10 mg tablet 10 mg PO DAILY 08/18/20 12/13/22 pioglitazone 30 mg tablet 30 mg PO DAILY 08/18/20 12/13/22 Allergies Allergy/AdvReac Type Severity Reaction Status Date / Time iohexol Allergy Swelling Verified 11/24/22 13:37 [From contrast - CT, X-RAY] clindamycin AdvReac Intermediate Diarrhea Verified 11/24/22 13:37 Review of Systems Review of Systems: CONSTITUTIONAL: Denies body aches, fever, chills, or sweats. EYES: Denies visual changes, redness, or discharge. ENT: Denies rhinorrhea, congestion, or otalgia. CARDIOVASCULAR: Denies chest pain, palpitations, or edema. RESPIRATORY: Denies dyspnea. GASTROINTESTINAL: Denies abdominal pain, nausea, vomiting, or diarrhea. SKIN: Denies rash, itching, or wounds. MUSCULOSKELETAL: Denies back pain, joint pain, or myalgia. NEUROLOGIC: Denies headache PMFSH Past Medical History Medical History Diabetes mellitus Hypertension Family History Family History Other Heart disease Social History Social History Smoking status: Never smoker Alcohol intake: never Substance use: never Gender identity (if verbalized by the patient): Male Exam Narrative: GENERAL: well-appearing, no acute distress. EYES: conjunctivae clear ENT: Mucous membranes moist. TMs pearly richter with normal light reflex bilaterally; no tragal tenderness. Oropharynx mildly erythematous without lesions. Tonsils 1+without exudate. No drooling, no hoarseness, no trismus, uvula midline. No tripod positioning, hot potato voice, or soft palate swelling. NECK: Supple. No lymphadenopathy CHEST: Clear to auscultation, breath sounds equal. HEART: Regular rate and rhythm. No murmur heard. SKIN: Warm, dry, no rash. NEURO: Alert and oriented x3. Course Course Emergency Course: Patient is aware of diagnosis, understands and agrees to treatment plan. Anticipatory guidance given. Patient agrees to follow-up as directed and is aware of reasons to seek care at the emergency department. Portions of this record may have been created with voice recognition software Level of Care: Express Care Visit Vital Signs Vital signs: Vital Signs Temperature 97.7 F 12/13/22 14:33 Pulse Rate 82 12/13/22 14:33 Respiratory Rate 20 12/13/22 14:33 Blood Pressure 116/62 12/13/22 14:33 Pulse Oximetry 98 12/13/22 14:33 Oxygen Delivery Room Air 12/13/22 14:33 Temperature 97.7 F 12/13/22 14:33 Pulse Rate 82 12/13/22 14:33 Respiratory Rate 20 12/13/22 14:33 Blood Pressure 116/62 12/13/22 14:33 Pulse Oximetry 98 12/13/22 14:33 Oxygen Delivery Room Air 12/13/22 14:33 MDM - URI/Sore Throat MDM Narrative Medical decision making narrative: strep result reviewed with pt. Advise supportive treatments. Patient states 'those will not work I know it is strep.' Will send for culture. He is aware he will be notified if the results are positive and abx will be armaan
== END 2022-12-13 15:10 | disposition home or self-care (01) ==
PROVIDERS: Emergency Provider Nurse Practitioner Family; PCP Physician Assistant
DX: J02.9 Acute pharyngitis, unspecified (principal); E11.9 Type 2 diabetes mellitus without complications; I10 Essential (primary) hypertension
CPT/HCPCS: 87081; 87880; 99213; G0463

== ENCOUNTER 2023-02-21 15:54 | Emergency (ER) | payer MEDICAID, SELFPAY ==
--- NOTE | 2023-02-21 16:17 | ED.URI ---
HPI - URI/Sore Throat General Chief Complaint: Upper Respiratory Infection Stated Complaint: Sore Throat Source: patient and RN notes reviewed History of Present Illness HPI Narrative: 52-year-old male presents to urgent care with complaints of a sore throat since . Patient reports the pain is also located on his left lateral neck and around his left ear. Denies any fevers or chills vomiting, abdominal pain, chest pain, or shortness of breath. Some parts of this dictation were generated by voice recognition software and may contain typographical and/or grammatical inaccuracies. Related Data Home Medications Medication Instructions Recorded Confirmed glimepiride 4 mg tablet 4 mg PO DAILY 08/18/20 02/21/23 lisinopril 10 mg tablet 10 mg PO DAILY 08/18/20 02/21/23 pioglitazone 30 mg tablet 30 mg PO DAILY 08/18/20 02/21/23 Allergies Allergy/AdvReac Type Severity Reaction Status Date / Time iohexol Allergy Swelling Verified 02/21/23 16:01 [From contrast - CT, X-RAY] clindamycin AdvReac Intermediate Diarrhea Verified 02/21/23 16:01 Review of Systems Review of Systems: Pertinent positives and pertinent negatives per HPI. [facility] Past Medical History Medical History Diabetes mellitus Hypertension Family History Family History Other Heart disease Social History Social History Smoking status: Never smoker Alcohol intake: never Substance use: never Gender identity (if verbalized by the patient): Male Comments At the time of my signature, I reviewed and agree with the nursing past medical, surgical, social, and family history. There is no relevant family history pertinent to the patient complaint. Exam Narrative: GENERAL: This is a well-nourished, well-developed patient, in no apparent distress. HEAD: normocephalic, atraumatic. EYES: PERRL. Sclera clear/white. Vision is grossly intact. EARS: External ears normal, auditory canals clear and without drainage, TMs normal without perforation. Hearing grossly intact. NOSE: External nose normal with no obvious nasal discharge, nares without redness, no rhinorrhea. THROAT: Mucous membranes moist, posterior pharynx clear. NECK: Neck supple, non-tender without lymphadenopathy, masses or thyromegaly. CARDIOVASCULAR: Regular rate and rhythm without murmurs, gallops, or rubs. RESPIRATORY: Clear to auscultation. Breath sounds equal bilaterally. No wheezes, rales, or rhonchi. GASTROINTESTINAL: Abdomen soft, non-tender, nondistended. Bowel sounds are active. No hepato-splenomegaly, or palpable masses. No guarding. SKIN: warm, intact with no suspicious lesions or rash, good texture and turgor. NEURO: awake, alert, and oriented to person, place and time. There were no obvious focal neurologic abnormalities. EXTREMITIES: No clubbing, cyanosis, or edema. No joint tenderness, effusion, or edema noted. BACK: Nontender without deformity or crepitance. No flank tenderness. Course Course Level of Care: Express Care Visit Vital Signs Vital signs: Vital Signs Temperature 98.4 F 02/21/23 16:18 Pulse Rate 88 02/21/23 16:18 Respiratory Rate 20 02/21/23 16:18 Blood Pressure 126/74 02/21/23 16:18 Pulse Oximetry 99 02/21/23 16:18 Temperature 98.4 F 02/21/23 16:18 Pulse Rate 88 02/21/23 16:18 Respiratory Rate 20 02/21/23 16:18 Blood Pressure 126/74 02/21/23 16:18 Pulse Oximetry 99 02/21/23 16:18 reviewed MDM - URI/Sore Throat MDM Narrative Medical decision making narrative: Rapid strep is negative in the office; however we will send to the lab for confirmation; there is a small percentage chance that it can come back positive; if it is, we will call you in 2-3days; and your prescription will be call in to your pharmacy. However, there is NO indication for a
[2023-02-21 16:18] VITALS: BP 126/74; PULSE 88; RESP 20; TEMP 36.9; O2SAT 99
--- NOTE | 2023-02-21 16:45 | ED.URI ---
HPI - URI/Sore Throat General Chief Complaint: Upper Respiratory Infection Stated Complaint: Sore Throat Source: patient and RN notes reviewed History of Present Illness HPI Narrative: 52-year-old male presents to urgent care with complaints of a sore throat and headache. Patient states this started on . Patient states he has achiness that goes around his left ear as well. Denies any fevers, chills, congestion, vomiting, diarrhea chest pain, or shortness of breath. Some parts of this dictation were generated by voice recognition software and may contain typographical and/or grammatical inaccuracies. Related Data Home Medications Medication Instructions Recorded Confirmed glimepiride 4 mg tablet 4 mg PO DAILY 08/18/20 02/21/23 lisinopril 10 mg tablet 10 mg PO DAILY 08/18/20 02/21/23 pioglitazone 30 mg tablet 30 mg PO DAILY 08/18/20 02/21/23 Allergies Allergy/AdvReac Type Severity Reaction Status Date / Time iohexol Allergy Swelling Verified 02/21/23 16:01 [From contrast - CT, X-RAY] clindamycin AdvReac Intermediate Diarrhea Verified 02/21/23 16:01 Review of Systems Review of Systems: Pertinent positives and pertinent negatives per HPI. [facility] Past Medical History Medical History Diabetes mellitus Hypertension Family History Family History Other Heart disease Social History Social History Smoking status: Never smoker Alcohol intake: never Substance use: never Gender identity (if verbalized by the patient): Male Comments At the time of my signature, I reviewed and agree with the nursing past medical, surgical, social, and family history. There is no relevant family history pertinent to the patient complaint. Exam Narrative: GENERAL: This is a well-nourished, well-developed patient, in no apparent distress. HEAD: normocephalic, atraumatic. EYES:Sclera clear/white. Vision is grossly intact. EARS: External ears normal, auditory canals clear and without drainage, TMs normal without perforation. Hearing grossly intact. NOSE: External nose normal with no obvious nasal discharge, nares without redness, no rhinorrhea. THROAT: Mucous membranes moist, posterior pharynx clear. NECK: Neck supple, non-tender without lymphadenopathy, masses or thyromegaly. CARDIOVASCULAR: Regular rate and rhythm without murmurs, gallops, or rubs. RESPIRATORY: Clear to auscultation. Breath sounds equal bilaterally. No wheezes, rales, or rhonchi. GASTROINTESTINAL: Abdomen soft, non-tender, nondistended. Bowel sounds are active. No hepato-splenomegaly, or palpable masses. No guarding. SKIN: warm, intact with no suspicious lesions or rash, good texture and turgor. NEURO: awake, alert, and oriented to person, place and time. There were no obvious focal neurologic abnormalities. Course Course Level of Care: Express Care Visit Vital Signs Vital signs: Vital Signs Temperature 98.4 F 02/21/23 16:18 Pulse Rate 88 02/21/23 16:18 Respiratory Rate 20 02/21/23 16:18 Blood Pressure 126/74 02/21/23 16:18 Pulse Oximetry 99 02/21/23 16:18 Temperature 98.4 F 02/21/23 16:18 Pulse Rate 88 02/21/23 16:18 Respiratory Rate 20 02/21/23 16:18 Blood Pressure 126/74 02/21/23 16:18 Pulse Oximetry 99 02/21/23 16:18 reviewed. MDM - URI/Sore Throat MDM Narrative Medical decision making narrative: Rapid strep is negative in the office; however we will send to the lab for confirmation; there is a small percentage chance that it can come back positive; if it is, we will call you in 2-3days; and your prescription will be call in to your pharmacy. However, there is NO indication for antibiotic at this time. -Increase your fluids and Vitamin C. -Oral rinses such as: Salt water gargles and/or may use topical anesthetic (eg. Chloras
== END 2023-02-21 16:53 | disposition home or self-care (01) ==
PROVIDERS: Emergency Provider Nurse Practitioner Family; PCP Physician Assistant
DX: J02.9 Acute pharyngitis, unspecified (principal); E11.9 Type 2 diabetes mellitus without complications; I10 Essential (primary) hypertension
CPT/HCPCS: 87081; 87880; 99213; G0463

== ENCOUNTER 2023-03-03 14:53 | Emergency (ER) | payer MEDICAID, SELFPAY ==
--- NOTE | 2023-03-03 15:00 | ED.URI ---
HPI - URI/Sore Throat General Chief Complaint: Upper Respiratory Infection Stated Complaint: Sinus Time Seen by Provider: 03/03/23 15:09 Source: patient, RN notes reviewed and old records reviewed Mode of arrival: ambulatory Limitations: no limitations History of Present Illness HPI Narrative: 52-year-old male presents to the [facility] with sinus congestion, pain and pressure for over 10 days. Was evaluated tested for strep 10 days ago which he reports as negative. Has tried [id number] products with no relief. Denies fevers Related Data Home Medications Medication Instructions Recorded Confirmed glimepiride 4 mg tablet 4 mg PO DAILY 08/18/20 03/03/23 lisinopril 10 mg tablet 10 mg PO DAILY 08/18/20 03/03/23 pioglitazone 30 mg tablet 30 mg PO DAILY 08/18/20 03/03/23 Allergies Allergy/AdvReac Type Severity Reaction Status Date / Time iohexol Allergy Swelling Verified 03/03/23 15:04 [From contrast - CT, X-RAY] clindamycin AdvReac Intermediate Diarrhea Verified 03/03/23 15:04 Review of Systems Review of Systems: All systems reviewed & are unremarkable except as noted in HPI and below Constitutional: Constitutional: Reports no additional constitutional complaints Eyes: Eyes: Reports no additional eye complaints ENT: Reports as per HPI and Reports nasal congestion Cardiovascular: Cardiovascular: Reports no additional cardiovascular complaints, Denies chest pain and Denies dyspnea Respiratory: Respiratory: Reports no additional respiratory complaints, Denies chest congestion, Denies cough and Denies dyspnea Gastrointestinal: Gastrointestinal: Reports no additional gastrointestinal complaints, Denies abdominal pain, Denies nausea and Denies vomiting Musculoskeletal: Musculoskeletal: Reports no additional musculoskeletal complaints Integumentary/Breasts: Skin/Breast: Reports system reviewed and no additional complaints, except as docu Neurologic: Reports system reviewed and no additional complaints, except as documented Psychiatric: Psychiatric: Reports no additional psychiatric complaints Allergic/Immunologic: Allergic/Immunologic: Reports no additional allergic/immunologic complaints PMFSH Past Medical History Medical History Diabetes mellitus Hypertension Family History Family History Other Heart disease Social History Social History Smoking status: Never smoker Alcohol intake: never Substance use: never Gender identity (if verbalized by the patient): Male Comments At the time of my signature, I reviewed and agree with the nursing past medical, surgical, social, and family history. There is no relevant family history pertinent to the patient complaint. Exam Const: General: cooperative, healthy appearing, comfortable, no acute distress, well developed, alert and well nourished Nutritional Appearance: well nourished Orientation/consciousness: patient oriented x3 Limitations: no limitations HENMT: Head: normal to inspection Ears: hearing grossly normal bilaterally and external ears normal Face/Nose/Sinus: Normal external nose present, Normal nares present, Normal nasal mucous membranes and turbinates present, normal facial exam, face symmetric and sinus tenderness Face and sinus: normal facial exam Mouth: Yes Normal oral and palatal mucosa present, Yes lip normal and Yes moist mucous membranes Throat: posterior oropharynx normal and uvula midline Eyes: General: appearance normal, both eyes and all related structures Alignment and Position: alignment normal Periorbital: periorbital findings normal Conjunctivae: conjunctivae normal Pupils: Equal, round and reactive pupils present EOM: EOMs intact bilaterally Neck: Neck: normal visual inspection, full ROM, no lymphadenopathy and no meningeal signs Chest: Chest palp
[2023-03-03 15:01] VITALS: BP 143/74; PULSE 82; RESP 20; TEMP 36.6; O2SAT 96
[2023-03-03 15:05] VITALS: BP 143/74; PULSE 82; RESP 20; TEMP 36.6; O2SAT 96
== END 2023-03-03 15:40 | disposition home or self-care (01) ==
PROVIDERS: Emergency Provider Nurse Practitioner; PCP Physician Assistant
DX: J32.9 Chronic sinusitis, unspecified (principal); E11.9 Type 2 diabetes mellitus without complications; I10 Essential (primary) hypertension
CPT/HCPCS: 99213; G0463

== ENCOUNTER 2023-03-17 16:47 | Emergency (ER) | payer OTHER, SELFPAY ==
--- NOTE | ~2023-03-17 | XR_ITS ---
EXAM: XR knee RT min 4V DATE: 03/17/2023 17:40 HISTORY: chronic rt knee pain x 3 months . COMPARISON: None available. FINDINGS: Normal mineralization. No fracture or dislocation. No lytic or blastic lesion. Moderate tr icompartmental osteoarthritis. No erosion or periosteal change. Soft tissues within normal limits. IMPRESSION: No acute osseous finding in the right knee. Reviewed, dictated and finalized at location K.
[2023-03-17 17:06] VITALS: BP 146/74; PULSE 87; RESP 20; TEMP 36.7; O2SAT 96
--- NOTE | 2023-03-17 17:17 | ED.GENADULT ---
HPI - General Adult General Chief complaint: Wound/Laceration Stated complaint: Stomach pains / Right knee Time Seen by Provider: 03/17/23 17:18 Source: patient, RN notes reviewed and old records reviewed Mode of arrival: ambulatory Limitations: no limitations History of Present Illness HPI narrative: 52-year-old male presents to the [facility] with complaints having stomach pains when he woke up this morning associated with some nausea 1 episode of diarrhea, has subsided. Also complaining of bilateral knee pain worse of the right than the left since January, 2 months. States that his is currently in rehab. States he has been walking the dogs more often having to take out the trash and move much more. Patient is not all the time just intermittent. Related Data Home Medications Medication Instructions Recorded Confirmed glimepiride 4 mg tablet 4 mg PO DAILY 08/18/20 03/17/23 lisinopril 10 mg tablet 10 mg PO DAILY 08/18/20 03/17/23 pioglitazone 30 mg tablet 30 mg PO DAILY 08/18/20 03/17/23 Allergies Allergy/AdvReac Type Severity Reaction Status Date / Time iohexol Allergy Swelling Verified 03/17/23 16:51 [From contrast - CT, X-RAY] clindamycin AdvReac Intermediate Diarrhea Verified 03/17/23 16:51 Review of Systems Review of Systems: All systems reviewed & are unremarkable except as noted in HPI and below Constitutional: Constitutional: Reports no additional constitutional complaints Eyes: Eyes: Reports no additional eye complaints ENT: Reports system reviewed and no additional complaints, except as documented Cardiovascular: Cardiovascular: Reports no additional cardiovascular complaints, Denies chest pain and Denies dyspnea Respiratory: Respiratory: Reports no additional respiratory complaints, Denies chest congestion, Denies cough and Denies dyspnea Gastrointestinal: Gastrointestinal: Reports as per HPI, Denies abdominal pain, Denies nausea and Denies vomiting Musculoskeletal: Musculoskeletal: Reports as per HPI Integumentary/Breasts: Skin/Breast: Reports system reviewed and no additional complaints, except as docu Neurologic: Reports system reviewed and no additional complaints, except as documented Psychiatric: Psychiatric: Reports no additional psychiatric complaints Allergic/Immunologic: Allergic/Immunologic: Reports no additional allergic/immunologic complaints PMFSH Past Medical History Medical History Diabetes mellitus Hypertension Family History Family History Other Heart disease Social History Social History Smoking status: Never smoker Alcohol intake: never Substance use: never Gender identity (if verbalized by the patient): Male Comments At the time of my signature, I reviewed and agree with the nursing past medical, surgical, social, and family history. There is no relevant family history pertinent to the patient complaint. Exam Const: General: cooperative, healthy appearing, comfortable, no acute distress, well developed, alert and well nourished Nutritional Appearance: well nourished and obese morbidly obese Orientation/consciousness: patient oriented x3 Limitations: no limitations HENMT: Head: normal to inspection Ears: hearing grossly normal bilaterally and external ears normal Face/Nose/Sinus: Normal external nose present, Normal nares present, Normal nasal mucous membranes and turbinates present and normal facial exam Face and sinus: normal facial exam Eyes: General: appearance normal, both eyes and all related structures Alignment and Position: alignment normal Periorbital: periorbital findings normal Conjunctivae: conjunctivae normal Pupils: Equal, round and reactive pupils present EOM: EOMs intact bilaterally Neck: Neck: normal visual inspection, full ROM, no lymphadenopathy and no m
== END 2023-03-17 18:17 | disposition home or self-care (01) ==
PROVIDERS: Emergency Provider Nurse Practitioner; PCP Physician Assistant
DX: M17.11 Unilateral primary osteoarthritis, right knee (principal); E11.9 Type 2 diabetes mellitus without complications; I10 Essential (primary) hypertension
CPT/HCPCS: 73564; 99213; G0463

== ENCOUNTER 2023-07-05 16:48 | Emergency (ER) | payer OTHER, SELFPAY ==
[2023-07-05 16:58] VITALS: BP 144/64; PULSE 79; RESP 16; TEMP 37.3; O2SAT 99
--- NOTE | 2023-07-05 17:11 | ED.GENADULT ---
HPI - General Adult General Chief complaint: Upper Respiratory Infection Stated complaint: diarrhea,headache Source: patient and RN notes reviewed Mode of arrival: ambulatory Limitations: no limitations History of Present Illness HPI narrative: 52-year-old male presented for clearance to return to work following 3 days of diarrhea. States he missed work due to the symptoms. Reports improvement since yesterday and is now able to tolerate normal food. Denies abdominal pain, hematochezia, melena, vomiting, fever or chills. Denies sick contacts. Related Data Home Medications Medication Instructions Recorded Confirmed glimepiride 4 mg tablet 4 mg PO DAILY 08/18/20 03/17/23 lisinopril 10 mg tablet 10 mg PO DAILY 08/18/20 03/17/23 pioglitazone 30 mg tablet 30 mg PO DAILY 08/18/20 03/17/23 Allergies Allergy/AdvReac Type Severity Reaction Status Date / Time iohexol Allergy Swelling Verified 07/05/23 16:50 [From contrast - CT, X-RAY] clindamycin AdvReac Intermediate Diarrhea Verified 07/05/23 16:50 Review of Systems Review of Systems: CONSTITUTIONAL: Denies body aches, fever, chills ENT: Denies rhinorrhea, congestion CARDIOVASCULAR: Denies chest pain, palpitations, or edema. RESPIRATORY: Denies cough or dyspnea. GASTROINTESTINAL: Endorses improvement in diarrhea, denies abdominal pain, nausea, vomiting, hematochezia, melena, hematemesis GENITOURINARY: Denies dysuria, hematuria, or CVA tenderness. SKIN: Denies rash, itching, or wounds. MUSCULOSKELETAL: Denies back pain, joint pain, or myalgia. NEUROLOGIC: Denies headache, numbness, tingling, or weakness. All systems reviewed & are unremarkable except as noted in HPI and below PMFSH Past Medical History Medical History Diabetes mellitus Hypertension Family History Family History Other Heart disease Social History Social History Smoking status: Never smoker Alcohol intake: never Substance use: never Gender identity (if verbalized by the patient): Male Comments At time of signature, I have reviewed and agree with nursing past medical, surgical, social and family history unless otherwise noted. Please see nursing chart for further information. There is no relevant family history pertinent to the presenting complaint Exam Narrative: GENERAL: Well-appearing, and in no acute distress. EYES: EOMI. Conjunctivae normal. ENT: Mucous membranes pink and moist. CHEST: No respiratory distress. Clear to auscultation. HEART: Regular rate and rhythm. No murmur appreciated. Normal peripheral pulses. ABDOMEN: abd soft, nondistended, normal active bowel sounds. Large abdomen. Nontender abdomen; No guarding, rebound tenderness, asymmetry EXTREMITIES: Normal range of motion. No edema. SKIN: Warm, dry, no rash. Capillary refill normal. Normal skin turgor. NEURO: No focal deficits. Alert and oriented x3. PSYCH: Normal affect. Course Course Emergency Course: Patient is aware of diagnosis, understands and agrees to treatment plan. Anticipatory guidance given. Patient agrees to follow-up as directed and is aware of reasons to seek care at the emergency department. Portions of this record may have been created with voice recognition software Level of Care: Express Care Visit Vital Signs Vital signs: Vital Signs Temperature 99.1 F 07/05/23 16:58 Pulse Rate 79 07/05/23 16:58 Respiratory Rate 16 07/05/23 16:58 Blood Pressure 144/64 H 07/05/23 16:58 Pulse Oximetry 99 07/05/23 16:58 Oxygen Delivery Room Air 07/05/23 16:58 Temperature 99.1 F 07/05/23 16:58 Pulse Rate 79 07/05/23 16:58 Respiratory Rate 16 07/05/23 16:58 Blood Pressure 144/64 H 07/05/23 16:58 Pulse Oximetry 99 07/05/23 16:58 Oxygen Delivery Room Air 07/05/23 16:58
== END 2023-07-05 17:15 | disposition home or self-care (01) ==
PROVIDERS: Emergency Provider Nurse Practitioner Family; PCP Physician Assistant
DX: R19.7 Diarrhea, unspecified (principal); E11.9 Type 2 diabetes mellitus without complications; I10 Essential (primary) hypertension
CPT/HCPCS: 99211; G0463

== ENCOUNTER 2023-10-20 19:30 | Emergency (ER) | payer OTHER, SELFPAY ==
[2023-10-20 19:37] VITALS: BP 151/72; PULSE 74; RESP 20; TEMP 37.4; O2SAT 96
--- NOTE | 2023-10-20 20:02 | ED.GENADULT ---
HPI - General Adult General Chief complaint: Upper Respiratory Infection Stated complaint: Sore Throat Time Seen by Provider: 10/20/23 20:02 Source: patient, RN notes reviewed and old records reviewed Mode of arrival: ambulatory Limitations: no limitations History of Present Illness HPI narrative: 52-year-old male presents to the [facility] with complaints of body aches, fatigue, cough and generalized not feeling well since Thursday, 2 days. Has tried [id number] cold medicine with minimal relief. Reports that he had fevers Onset (ago): day(s) (2) Treatments prior to arrival: other (Cold medicine) Related Data Home Medications Medication Instructions Recorded Confirmed glimepiride 4 mg tablet 4 mg PO DAILY 08/18/20 10/20/23 lisinopril 10 mg tablet 10 mg PO DAILY 08/18/20 10/20/23 pioglitazone 30 mg tablet 30 mg PO DAILY 08/18/20 10/20/23 Allergies Allergy/AdvReac Type Severity Reaction Status Date / Time iohexol Allergy Severe Swelling Verified 10/20/23 19:37 [From contrast - CT, X-RAY] clindamycin AdvReac Intermediate Diarrhea Verified 10/20/23 19:37 Review of Systems Review of Systems: All systems reviewed & are unremarkable except as noted in HPI and below Constitutional: Constitutional: Reports as per HPI, Reports body ache(s), Reports chills, Reports fatigue and Reports fever(s) Eyes: Eyes: Reports no additional eye complaints ENT: Reports as per HPI Cardiovascular: Cardiovascular: Reports no additional cardiovascular complaints, Denies chest pain and Denies dyspnea Respiratory: Respiratory: Reports as per HPI, Denies chest congestion, Reports cough and Denies dyspnea Gastrointestinal: Gastrointestinal: Reports no additional gastrointestinal complaints, Denies abdominal pain, Denies nausea and Denies vomiting Musculoskeletal: Musculoskeletal: Reports no additional musculoskeletal complaints Integumentary/Breasts: Skin/Breast: Reports system reviewed and no additional complaints, except as docu Neurologic: Reports system reviewed and no additional complaints, except as documented Psychiatric: Psychiatric: Reports no additional psychiatric complaints Allergic/Immunologic: Allergic/Immunologic: Reports no additional allergic/immunologic complaints PMFSH Past Medical History Medical History Diabetes mellitus Hypertension Family History Family History Other Heart disease Social History Social History Smoking status: Never smoker Alcohol intake: never Substance use: never Gender identity (if verbalized by the patient): Male Comments At the time of my signature, I reviewed and agree with the nursing past medical, surgical, social, and family history. There is no relevant family history pertinent to the patient complaint. Exam Const: General: cooperative, healthy appearing, comfortable, no acute distress, well developed, alert and well nourished Nutritional Appearance: well nourished and obese Orientation/consciousness: patient oriented x3 Limitations: no limitations HENMT: Head: normal to inspection Ears: hearing grossly normal bilaterally, external ears normal and Abnormal EAC present erythema on the left, EAC tenderness on the left and other (Scratch noted to the 6:00 a.m. of the ear canal) Face/Nose/Sinus: Normal external nose present, Normal nares present, Normal nasal mucous membranes and turbinates present, normal facial exam and face symmetric Face and sinus: normal facial exam and face symmetric Mouth: Yes Normal oral and palatal mucosa present, Yes lip normal and Yes moist mucous membranes Throat: posterior oropharynx normal, tonsils normal, uvula midline and postnasal drainage Eyes: General: appearance normal, both eyes and all related structures Alignment and Position: alignment normal Periorbital: periorb
== END 2023-10-20 20:19 | disposition home or self-care (01) ==
PROVIDERS: Emergency Provider Nurse Practitioner; PCP Physician Assistant
DX: B34.9 Viral infection, unspecified (principal); S00.412A Abrasion of left ear, initial encounter; Z20.822 Contact with and (suspected) exposure to COVID-19; X58.XXXA Exposure to other specified factors, initial encounter; E11.9 Type 2 diabetes mellitus without complications; I10 Essential (primary) hypertension
CPT/HCPCS: 87426; 87804; 99213; C9803; G0463

== ENCOUNTER 2024-08-29 10:18 | Emergency (ER) | payer SELFPAY ==
--- NOTE | 2024-08-29 10:20 | ED.URI ---
HPI - URI/Sore Throat General Chief Complaint: Medical Clearance Stated Complaint: Sinus Time Seen by Provider: 08/29/24 10:20 Source: patient and RN notes reviewed Mode of arrival: ambulatory Limitations: no limitations History of Present Illness HPI Narrative: 53-year-old male presents with concern for returning back to work after feeling ill for the last couple of days. He reports symptoms started on with nausea, diarrhea and nasal drainage. He denies any vomiting. Denies fever, cough, sore throat. He reports symptoms have resolved and he wants to return back to work, he missed work last week. He did not take any medication for his symptoms MD elicited complaint: rhinorrhea and other (Nausea, diarrhea) Related Data Home Medications Medication Instructions Recorded Confirmed glimepiride 4 mg tablet 4 mg PO DAILY 08/18/20 08/29/24 lisinopril 10 mg tablet 10 mg PO DAILY 08/18/20 08/29/24 pioglitazone 30 mg tablet 30 mg PO DAILY 08/18/20 08/29/24 Allergies Allergy/AdvReac Type Severity Reaction Status Date / Time iohexol Allergy Severe Swelling Verified 08/29/24 10:45 [From contrast - CT, X-RAY] clindamycin AdvReac Intermediate Diarrhea Verified 08/29/24 10:45 Review of Systems Review of Systems: CONSTITUTIONAL: Denies malaise, chills, sweats, or fever. EYES: Denies visual changes, redness, or discharge. ENT: Denies rhinorrhea, congestion, sinus pain, otalgia and sore throat. CARDIOVASCULAR: Denies chest pain, palpitations, or edema. RESPIRATORY: Reports cough. Denies dyspnea. GASTROINTESTINAL: Denies abdominal pain, current nausea, vomiting, current diarrhea SKIN: Denies rash or itching. MUSCULOSKELETAL: Denies myalgia. NEUROLOGIC: Denies headache. All systems reviewed & are unremarkable except as noted in HPI and below PMFSH Past Medical History Medical History Diabetes mellitus Hypertension Family History Family History Other Heart disease Social History Social History Smoking status: Never smoker Alcohol intake: never Substance use: never Gender identity (if verbalized by the patient): Male Comments At time of signature, agree with nursing past medical, surgical, social and family history. There is no relevant family history pertinent to the presenting complaint Exam Narrative: GENERAL: Well-appearing, well-nourished, and in no acute distress. HEAD: Normocephalic, atraumatic. EYES: PERRLA, sclera clear, and EOMI. ENT: Nares clear. Mucous membranes moist. NECK: Supple. CHEST: No respiratory distress. Speaks in full sentences. HEART: Regular rate and rhythm. SKIN: Warm, dry, no visible rash. NEURO: Alert and oriented x3. PSYCH: Normal mood and affect Course Course Emergency Course: Patient is aware of diagnosis, understands and agrees to treatment plan. Anticipatory guidance given. Patient agrees to follow-up as directed and is aware of reasons to seek care at the emergency department. Portions of this record may have been created with voice recognition software Level of Care: Express Care Visit Vital Signs Vital signs: Reviewed. MDM - URI/Sore Throat MDM Narrative Medical decision making narrative: I evaluated this patient in the express care. History is obtained from patient who is an independent historian and physical exam was performed.? Available medical records were reviewed. ? Exam findings show no acute concerns or changes; patient is non-toxic appearing and is in no distress. ? Differential diagnosis and treatment plan were discussed with the patient. Patient agrees with discussion and after shared medical decision making agrees with plan of care. All questions were answered to the patient's satisfaction. Patient is appropriate for outpatient treatment and follow-up. Lab Data
[2024-08-29 10:29] VITALS: BP 147/74; PULSE 74; RESP 19; TEMP 36.9; O2SAT 97
== END 2024-08-29 10:53 | disposition home or self-care (01) ==
PROVIDERS: Emergency Provider Nurse Practitioner; PCP Physician Assistant
DX: K52.9 Noninfective gastroenteritis and colitis, unspecified (principal); E11.9 Type 2 diabetes mellitus without complications; Z79.84 Long term (current) use of oral hypoglycemic drugs; I10 Essential (primary) hypertension
CPT/HCPCS: 99211; G0463